=== PATIENT | male | born 1990 | race Caucasian/White ===

== ENCOUNTER 2016-10-31 16:04 | Emergency (ER) | payer OTHER ==
--- OUTSIDE RECORDS SUMMARY | 2016-10-31 16:51 | XMS REPORT | Continuity of Care Document ---
:1990 Author Organization [facility] ([facility]) [place] [address] Phone [phone] Care Team Providers Name Role Phone Provider, No-Primary Care Primary Care Provider Unavailable Source Comments This disclosure is being made pursuant to the Care Everywhere program, applicable federal and state laws, and may not contain all informaitonavailable regarding this patient.[facility] ([facility]) Active Allergies and Adverse Reactions Not on File Current Medications Not on file Active Problems Not on file Social History Tobacco Use Types Packs/Day Years Used Date Never Assessed Plan of Care Health Maintenance Due Date Last Done Comments Hepatitis B Vaccine (1 of 3 - Primary Series) 1990 HPV Vaccine (1 of 3 - Male 3 Dose Series) 2001 Tdap Vaccine 2001 Lipid Disorder Screening 02/04/2008 MMR Vaccine 02/04/2008 Td Vaccine 02/04/2008 Varicella Vaccine (1 of 2 - Adult - No Evidence of 02/04/2008 Immunity) Influenza Vaccine: Seasonal (#1) 01/17/2016 Results from Last 3 Months Not on file
--- NOTE | 2016-10-31 16:55 | ERNOTE ---
Head Injury HPI - Narrative Date of Service: 10/31/16 - General Injury to: head, face Time Seen by Provider: 10/31/16 16:21 - Immun/Allergies/Home Medications Immunization: IMMUNIZATION HX Immunizations Up to Date Yes History of Influenza Vaccine No Hx Pneumococcal Vaccination No Allergies/Adverse Reactions: Allergies Allergy/AdvReac Type Severity Reaction Status Date / Time No Known Allergies Allergy Verified 12/31/15 18:26 Home Medications: HOME MEDICATIONS Amox Tr/Potassium Clavulanate [Augmentin 875-125 Tablet] 875 mg PO Q12H #20 tab 10/31/16 [Last Taken Unknown] - History of Present Illness Narrative: Pt. comes in with c/o falling from horse and getting stepped on this morning at 0830 Pt. has an abrasion to his L top of head, facial pain and swelling over his nose (that pt. states was bleeding but is not bleeding currently). Pt. denies loss of consciousness but does state that he does not remember the incident fully he just remembers being on the horse one minute and on the ground with nose pain after. Review of Systems - Review of Systems Constitutional: Present: no symptoms reported. Absent: recent illness, fever, chills, weakness, fatigue, malaise EYE: Present: no symptoms reported ENT: Present: nose pain, nose congestion, nasal drainage - blood resolved at this time, other - head laceration top of R head. Absent: pulling on ears, sore throat Respiratory: Present: no symptoms reported. Absent: shortness of breath, cough , wheezing Cardiology: Present: no symptoms reported. Absent: chest pain, palpitations, edema Gastrointestinal/Abdominal: Present: nausea. Absent: vomiting, diarrhea, abdominal pain Genitourinary: Present: no symptoms reported Musculoskeletal: Present: neck pain. Absent: back pain, joint pain Skin: Present: no symptoms reported. Absent: rash, change in hair/nails Neurological: Present: dizziness/light-headedness, other - amnesia of incident. Absent: headache, numbness, tingling All Other Systems: All systems neg except as marked - Patient's Past Medical History Patient History - Medical: No pertinent hx Patient History - Cardiac/Respiratory: Asthma Patient History - Cancer: No Hx of Cancer Patient History - Surgical Procedures: Noncontributory Patient History - Other: None - Social History Living Situations: home Abuse History: No History of abuse Psych History: No pertinent hx Smoking Status: Never smoker Have you smoked in the past 12 months: No Alcohol Use: none Drug Use: none - Immunizations Immunizations Up to Date: Yes Hx Pneumococcal Vaccination: No History of Influenza Vaccine: No Physical Exam - Physical Exam General Appearance: Present: wd/wn, alert, no apparent distress Eye Exam: Normal inspection: bilateral, PERRL: bilateral, EOMI: bilateral Ears, Nose, Throat: Present: nasal congestion, other - nasal swelling, bruising , and pain. Absent: abnormal TM (R), abnormal TM (L), sinus pain/drainage Neck: Present: supple, full range of motion, tender lateral - L, tender posterior midline - C6. Absent: lymphadenopathy (R), lymphadenopathy (L) Respiratory: Present: no respiratory distress, normal breath sounds, no accessory muscle use, chest nontender, lungs clear Cardiovascular/Chest: Present: regular rate, rhythm, no murmur, normal peripheral pulses Gastrointestinal/Abdominal: Present: normal bowel sounds, nontender, nondistended, soft Back Exam: Present: normal inspection, normal range of motion, no CVA tenderness , no vertebral tenderness Extremity Exam: Present: normal inspection, non-tender, normal range of motion, no edema Neurological Exam: Present: alert, oriented, normal mood/affect, no motor/ sensory deficits, turn supervisor II-XII nml as tested, normal cerebellar test Skin Exam: Present: normal color, warm/dry, other - laceration 1 cm in length L temporal lobe upper ED Progress - Date and Time Seen: Date and Time: Discussed with Dr Celis and she recommends seeing her in the office in the AM - Vital Signs Patient's Vital Signs:: I have reviewed the patient's vital signs. Vital Signs: Vital Signs 10/31/16 16:08 Temperature 37.3 C Pulse Rate 82 Respiratory 15 Rate Blood Pressure 134/78 O2 Sat by Pulse 99 Oximetry - CT/Ultrasound CT/Ultrasound Narrative: CT head and cervical without any obvious abnormalities but CT maxiofacial with nasal bone fracture and sub q air that extends to L orbit. - Progress/Reassessment Chief Complaint: Head Injury Departure Clinical Impression: Nasal bones, closed fracture Qualifiers: Encounter type: initial encounter Qualified Code(s): S02.2XXA - Fracture of nasal bones, initial encounter for closed fracture - Departure Disposition: Home self-care Condition: Good Instructions: Nasal Fracture, [id number] Additional Instructions: Do not blow nose and please follow up with Dr Celis at [facility] at 0900. Referrals: Emil Wilder MD [Courtesy Staff] - Prescriptions: Amox Tr/Potassium Clavulanate [Augmentin 875-125 Tablet] 875 mg PO Q12H #20 tab
[2016-10-31 17:17] VITALS: BP 119/72
== END 2016-10-31 17:57 | disposition home or self-care (01) ==
LOC: ER 16:04
DX: S02.2XXA Fracture of nasal bones, initial encounter for closed fracture (principal); V80.010A Animal-rider injured by fall from or being thrown from horse in noncollision accident, initial encounter; Y93.52 Activity, horseback riding; Y92.9 Unspecified place or not applicable; Y99.9 Unspecified external cause status

== ENCOUNTER 2017-01-07 08:04 | Emergency (ER) | payer OTHER ==
[2017-01-07 08:15] VITALS: BP 142/74
[2017-01-07 08:23] LABS: Urine Bilirubin 1 mg/dl (NEGATIVE); Urine Blood 250 /ul (NEGATIVE); Urine Ketone Negative (NEGATIVE); Urine Nitrite Negative (NEGATIVE); Urine Protein 100 mg/dL (NEGATIVE); Urine Specific Gravity 1.015 SP.GR. (1.005-1.030); Urine Urobilinogen Normal (NORMAL)
[2017-01-07 08:26] LABS: Urine Appearance Turbid; Urine Bacteria 3+; Urine Color Red; Urine RBC >50 /hpf (0-5); Urine Renal Epithelial Cell Moderate - 2+ /hpf
--- NOTE | 2017-01-07 08:49 | ERNOTE ---
ER Male HPI Date of Service: 01/07/17 Stated Complaint: URINATING BLOOD Time Seen by Provider: 01/07/17 08:25 Source: patient Exam Limitations: no limitations Immunizations: IMMUNIZATION HX Immunizations Up to Date Yes History of Influenza Vaccine No Hx Pneumococcal Vaccination No Allergies/Adverse Reactions: Allergies No Known Allergies Allergy (Verified 01/07/17 08:15) Home Medications: HOME MEDICATIONS Doxycycline Hyclate [Vibratab] 100 mg PO BID #30 tablet 01/07/17 [Last Taken Unknown] - History of Present Illness Narrative: One week ago head brief dysuria. Off and on in the past, had brief dysuria. This morning, some dysuria. Then gross hematuria. Some mild deep rectal aching today. 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 Two kids. No other sex partners. Timing: Present: constant Quality: Present: moderate Onset Location: Present: other - rectal and perineal ache Radiation: Present: none Activities at Onset: Present: none Prior Abdominal Problems: Present: none Sexual [place] History: Present: single partner Modifying Factors - (Improves): Present: other - nothing Modifying Factors - (Worsens): Present: other - nothing Associated Symptoms: Present: denies symptoms Prior Treatment: Absent: recently seen, treated by physician, recently hospitalized, currently on antibiotics Review of Systems - Review of Systems Constitutional: Present: no symptoms reported EYE: Present: no symptoms reported ENT: Present: no symptoms reported Respiratory: Present: no symptoms reported Cardiology: Present: no symptoms reported Gastrointestinal/Abdominal: Present: no symptoms reported Genitourinary: Present: See HPI Musculoskeletal: Present: no symptoms reported Skin: Present: no symptoms reported - Patient's Past Medical History Patient History - Medical: Other - broken hand and broken ankle. Patient History - Cardiac/Respiratory: Asthma Patient History - Cancer: No Hx of Cancer Patient History - Surgical Procedures: Noncontributory Patient History - Other: None - Social History Living Situations: spouse Abuse History: No History of abuse Psych History: No pertinent hx Smoking Status: Never smoker Have you smoked in the past 12 months: No Do you dip or chew tobacco: No Alcohol Use: occasionally Drug Use: none - Immunizations Immunizations Up to Date: Yes Hx Pneumococcal Vaccination: No History of Influenza Vaccine: No Physical Exam - Physical Exam General Appearance: Present: wd/wn, alert, no apparent distress Head Exam: Present: normal inspection Eye Exam: Normal inspection: bilateral, PERRL: bilateral, EOMI: bilateral Ears, Nose, Throat: Present: normal except - - crooked nose from fracture Neck: Present: normal inspection Respiratory: Present: no respiratory distress Cardiovascular/Chest: Present: regular rate, rhythm Gastrointestinal/Abdominal: Present: normal bowel sounds, nontender, nondistended, soft, no organomegaly Male Genitals Exam: Present: normal genitalia Extremity Exam: Present: normal inspection, no edema Neurological Exam: Present: alert, oriented, normal mood/affect Skin Exam: Present: normal color, warm/dry ED Progress - Results and Orders Patient's Lab Results:: I have reviewed the patient's lab results. - Vital Signs Patient's Vital Signs:: I have reviewed the patient's vital signs. Vital Signs: Vital Signs 01/07/17 08:11 Temperature 36.7 C Pulse Rate 79 Respiratory 14 Rate Blood Pressure 142/74 O2 Sat by Pulse 100 Oximetry - Progress/Reassessment Chief Complaint: Genitourinary Problem Departure Clinical Impression: Prostadynia Prostatitis Qualifiers: Prostatitis type: acute Qualified Code(s): N41.0 - Acute prostatitis - Departure Disposition: Home self-care Condition: Good Instructions: Prostatitis, [id number] Additional Instructions: Follow up with your doctor in two weeks. Prescriptions: Doxycycline Hyclate [Vibratab] 100 mg PO BID #30 tablet
== END 2017-01-07 08:54 | disposition home or self-care (01) ==
LOC: ER 08:04
DX: N42.81 Prostatodynia syndrome (principal); N41.0 Acute prostatitis

== ENCOUNTER 2017-01-27 14:32 | Emergency (ER) | payer OTHER ==
[2017-01-27 14:40] VITALS: BP 142/83
[2017-01-27 15:08] LABS: Urine Appearance Cloudy; Urine Bilirubin Negative (NEGATIVE); Urine Blood 250 /ul (NEGATIVE); Urine Color Yellow; Urine Ketone Negative (NEGATIVE); Urine Nitrite Positive (NEGATIVE); Urine Protein Negative (NEGATIVE); Urine Specific Gravity 1.015 SP.GR. (1.005-1.030); Urine Urobilinogen Normal (NORMAL)
[2017-01-27 15:09] LABS: Urine RBC >50 /hpf (0-5); Urine WBC >50 /hpf (0-5)
[2017-01-27 15:10] LABS: Urine Bacteria 2+
--- NOTE | 2017-01-27 15:47 | ERNOTE ---
ER Male HPI Date of Service: 01/27/17 Stated Complaint: URINATING BLOOD ER Male: other - hematuria after sex, reoccurrance of incident one month ago Time Seen by Provider: 01/27/17 14:44 Source: patient Immunizations: IMMUNIZATION HX Immunizations Up to Date Yes History of Influenza Vaccine No Hx Pneumococcal Vaccination No Allergies/Adverse Reactions: Allergies No Known Allergies Allergy (Verified 01/27/17 14:40) Home Medications: HOME MEDICATIONS Ciprofloxacin HCl [Cipro] 500 mg PO BID #20 tab 01/27/17 [Last Taken Unknown] - History of Present Illness Narrative: patient had similair episode one month ago treated with atb resolved was having sex last pm noticied urinating blood this am Timing: Present: constant Quality: Present: mild Onset Location: Present: suprapubic Radiation: Present: none Activities at Onset: Present: sexual activity Sexual [place] History: Present: single partner Modifying Factors - (Improves): Present: analgesics Associated Symptoms: Present: denies symptoms Review of Systems - Review of Systems Constitutional: Present: See HPI EYE: Present: no symptoms reported ENT: Present: no symptoms reported Respiratory: Present: no symptoms reported Cardiology: Present: no symptoms reported Gastrointestinal/Abdominal: Present: no symptoms reported Genitourinary: Present: See HPI, hematuria Musculoskeletal: Present: no symptoms reported Skin: Present: no symptoms reported Neurological: Present: no symptoms reported Endocrine: Present: no symptoms reported Hematologic/Lymphatic: Present: no symptoms reported Psych: Present: no symptoms reported All Other Systems: All systems neg except as marked - Patient's Past Medical History Patient History - Medical: No pertinent hx, Other Patient History - Cardiac/Respiratory: No pertinent hx, Asthma Patient History - Cancer: No Hx of Cancer Patient History - Surgical Procedures: Noncontributory Patient History - Other: None - Family History Family History:: no untoward family reactions to anesthesia, no familial bleeding tendencies, no family history of premature - Social History Living Situations: home Abuse History: No History of abuse Psych History: No pertinent hx Have you smoked in the past 12 months: No Do you dip or chew tobacco: No Patient requests Smoking Cessation Consult: No Initiate information on Smoking Cessation: No Alcohol Use: occasionally Drug Use: none - Immunizations Immunizations Up to Date: Yes Hx Pneumococcal Vaccination: No History of Influenza Vaccine: No Physical Exam - Physical Exam General Appearance: Present: no apparent distress Head Exam: Present: normal inspection Eye Exam: Normal inspection: bilateral, PERRL: bilateral, EOMI: bilateral Ears, Nose, Throat: Present: normal ENT inspection Neck: Present: normal inspection, nontender Respiratory: Present: no respiratory distress, normal breath sounds, no accessory muscle use, chest nontender, lungs clear Cardiovascular/Chest: Present: regular rate, rhythm, no murmur, normal peripheral pulses Peripheral Pulses: N=norm/S=strong/W=weak/B=bound/A=absent: Carotid (R): Normal , Carotid (L): Normal, Radial (R): Normal, Radial (L): Normal, Femoral (R): Normal, Femoral (L): Normal, Dorsalis-pedis (R): Normal, Dorsalis-pedis (L): Normal Gastrointestinal/Abdominal: Present: normal bowel sounds, nontender, nondistended, soft, no organomegaly Rectal Exam: Present: other - prostate somewhat enlarged and tender Male Genitals Exam: Present: normal genitalia, normal prostate, no hernia Back Exam: Present: normal inspection, normal range of motion, no CVA tenderness , no vertebral tenderness Extremity Exam: Present: normal inspection, non-tender, normal range of motion, no edema Neurological Exam: Present: alert, oriented, normal mood/affect, no motor/ sensory deficits DTR: N=norm/NB=norm/brisk/A=abs/DD=dull/dimin/HC=hyperactive: Bicep (R): Normal , Bicep (L): Normal, Tricep (R): Normal, Tricep (L): Normal, Knee (R): Normal, Knee (L): Normal, Ankle (R): Normal Skin Exam: Present: normal color, warm/dry Lymphatic Exam: Present: no adenopathy ED Progress - Results and Orders Patient's Lab Results:: I have reviewed the patient's lab results. - Vital Signs Vital Signs: Vital Signs 01/27/17 14:38 Temperature 37.5 C Pulse Rate 86 Respiratory 16 Rate Blood Pressure 142/83 O2 Sat by Pulse 100 Oximetry - Progress/Reassessment Chief Complaint: Genitourinary Problem Progress:: Improved - Transfer of Care Expected Disposition: Discharge Departure Clinical Impression: Prostatitis, acute - Departure Disposition: Home self-care Condition: Good Instructions: Prostatitis, [id number] Referrals: Mary Jackson MD [Primary Care Provider] - Prescriptions: Ciprofloxacin HCl [Cipro] 500 mg PO BID #20 tab
== END 2017-01-27 16:00 | disposition home or self-care (01) ==
LOC: ER 14:32
DX: N41.0 Acute prostatitis (principal)

== ENCOUNTER 2017-02-02 10:45 | Day surgery (SDC) | payer OTHER ==
[~2017-02-02 10:45] MED LIST: ACETAMINOPHEN WITH CODEINE 1 EACH TABLET PO PRN; CIPROFLOXACIN HCL 500 MG TABLET PO PRN; ONDANSETRON HCL/PF 2 MG/ML VIAL IV PRN; RINGER'S SOLUTION,LACTATED 1,000 ML IV PRN; oxyCODONE HCL/ACETAMINOPHEN 1 TAB TABLET PO PRN
[2017-02-02] MEDS ORDERED: RINGER'S SOLUTION,LACTATED 1,000 ML IV ONE (12:25)
[2017-02-02] MEDS ORDERED: LIDOCAINE HCL 10 APPL CARTRIDGE TP ONE (12:40)
[2017-02-02 14:15] VITALS: BP 120/73
== END 2017-02-02 10:46 | disposition home or self-care (01) ==
LOC: AMB 10:45
PROVIDERS: ATTEND Urology
PROC: 0T7D8ZZ Dilation of Urethra, Via Natural or Artificial Opening Endoscopic (ICD-10-PCS; principal; 2017-02-02 12:30)
DX: N35.9 Urethral stricture, unspecified (principal); Z87.440 Personal history of urinary (tract) infections; Z68.23 Body mass index [BMI] 23.0-23.9, adult